=== PATIENT | male | born 1990 | race Caucasian/White ===

== ENCOUNTER 2017-11-15 07:39 | Day surgery (SDC) | payer OTHER, MEDICAID ==
[2017-11-15] MEDS ORDERED: PROPOFOL 40 ML (08:56)
== END 2017-11-15 10:55 | disposition home or self-care (01) ==
LOC: GIL 07:39
DX: K29.60 Other gastritis without bleeding (principal); B96.81 Helicobacter pylori [H. pylori] as the cause of diseases classified elsewhere; F20.9 Schizophrenia, unspecified
CPT/HCPCS: 43239; 87081